=== PATIENT | male | born 1930 | race Caucasian/White ===

== ENCOUNTER 2016-10-08 10:09 | Emergency (ER) | payer OTHER ==
[~2016-10-08 10:09] MED LIST: ASAB PO; FLORASTOR250 MG PO; GLUCCHONDR PO; MSCONT15 PO; NEUR100 PO; NEUR300 PO; PRILO PO; TOPXL25 PO; ULTRACET PO; VIAGRA100 MG PO; ZANTAC 150 PO; ZESTRIL20 MG PO; ZOL50 PO
[2016-10-08] MEDS ORDERED: HALF81 PO (11:42)
[2016-10-08] MEDS ORDERED: PRILO PO (11:43)
[2016-10-08] MEDS ORDERED: NEUR300 PO (11:43)
[2016-10-08] MEDS ORDERED: TOPXL25 PO (11:43)
[2016-10-08] MEDS ORDERED: OTC PROBIOTIC PO (11:45)
[2016-10-08] MEDS ORDERED: ADVIL PO (11:46)
[2016-10-08] MEDS ORDERED: MULTIVIT/MIN PO (11:46)
[2016-10-08] MEDS ORDERED: CALC PO (11:47)
[2016-10-08] MEDS ORDERED: BALANCED B PO (11:47)
[2016-10-08] MEDS ORDERED: OMEGA PO (11:47)
[2016-10-08] MEDS ORDERED: [UNRECOGNIZED DRUG - OTHER] PO (11:47)
[2016-10-08] MEDS ORDERED: MAG PO (11:47)
[2016-10-08] MEDS ORDERED: OTC VITAMIN D PO (11:48)
[2016-10-08] MEDS ORDERED: MEDROLPAK4 PO (11:48)
[2016-10-08] MEDS ORDERED: ZYRTEC ALLGY10 MG PO (11:49)
[2016-10-08] MEDS ORDERED: [UNRECOGNIZED DRUG - REMARK] IM (11:50)
[2016-10-08] MEDS ORDERED: OXYCONTIN15 MG PO (11:51)
[2016-10-08 12:05] LABS: BASOPHILS 0.1 %; BASOPHILS ABSOLUTE 0.01 10/3/uL (0.0-0.16); EOSINOPHILS 0 %; HEMATOCRIT 44.8 % (40.0-51.0); HEMOGLOBIN 15.1 g/dL (13.6-17.8); IMMATURE GRANULOCYTES 0.2 %; IMMATURE GRANULOCYTES ABSOLUTE 0.02 10/3/uL (0.0-0.11); LYMPHOCYTES 7.8 %; LYMPHOCYTES ABSOLUTE 0.97 10/3/uL (0.67-4.30); MEAN CORPUS HGB CONC 33.7 g/dL (32.0-36.0); MEAN CORPUSCULAR HEMOGLOB 34.3 pg (26.0-34.0); MEAN PLATELET VOLUME 10.4 fL (9.2-13.0); MONOCYTES 6.8 %; MONOCYTES ABSOLUTE 0.84 10/3/uL (0.21-1.20); NEUTROPHILS 85.1 %; NEUTROPHILS ABSOLUTE 10.54 10/3/uL (2.02-8.40); PLATELET COUNT 193 10/3/uL (150-400); RBC DISTRIBUTION WIDTH 12.9 % (12.0-16.0)
[2016-10-08 12:06] LABS: ER CBC TAT 0 Hrs 03 Mins; MANUAL DIFF NO %; MEAN CORPUSCULAR VOLUME 101.8 fL (80-100); WHITE BLOOD CELLS 12.4 10/3/uL (4.5-10.5)
[2016-10-08 12:14] LABS: PARTIAL THROMBO TIME 29.6 SEC (22.5-37.2); PROTIME (NOT ORD) 13.4 SEC (12.0-14.5)
[2016-10-08 12:22] LABS: A/G RATIO 1.1 (0.7-1.9); ALBUMIN 3.4 G/DL (3.5-5.0); ALKALINE PHOSPHATASE 66 U/L (45-117); BUN (BLOOD UREA NITROGEN) 34 MG/DL (6-23); CALCIUM, SERUM 8.7 MG/DL (8.5-10.4); CHLORIDE, SERUM 107 MMOL/L (96-112); CO2 (CARBON DIOXIDE) 27 MMOL/L (24-34); CREATININE 1.62 MG/DL (0.70-1.30); GFR AFRICAN AMERICAN 44 ML/MIN (>=60); GFR NON AFRICAN AMERICAN 38 ML/MIN (>=60); GLOBULIN 3.2 G/DL (2.5-4.1); GLUCOSE, SERUM 107 MG/DL (60-99); POTASSIUM, SERUM 5.4 MMOL/L (3.5-5.3); SGOT(AST) 18 U/L (5-40); SGPT(ALT) 21 U/L (5-65); SODIUM, SERUM 141 MMOL/L (135-148); TOTAL BILIRUBIN 0.6 MG/DL (0-1.2); TOTAL PROTEIN 6.6 G/DL (6.0-8.5)
== END 2016-10-08 15:45 | disposition home or self-care (01) ==
LOC: ER 10:09
PROVIDERS: Nurse Practitioner
DX: M54.5 Low back pain (principal); I10 Essential (primary) hypertension; Z88.8 Allergy status to other drugs, medicaments and biological substances; Z79.82 Long term (current) use of aspirin; Z79.899 Other long term (current) drug therapy
CPT/HCPCS: 72148; 80053; 85025; 85610; 85730; 96374; 99284; J2405

== ENCOUNTER 2016-11-18 05:18 | Day surgery (SDC) | payer OTHER ==
[~2016-11-18 05:18] MED LIST changes: +ADVIL PO; +BALANCED B PO; +CALC PO; +HALF81 PO; +MAG PO; +MEDROLPAK4 PO; +MULTIVIT/MIN PO; +OMEGA PO; +OTC PROBIOTIC PO; +OTC VITAMIN D PO; +OXYCONTIN15 MG PO; +ZYRTEC ALLGY10 MG PO; +[UNRECOGNIZED DRUG - OTHER] PO; +[UNRECOGNIZED DRUG - REMARK] IM
== END 2016-11-18 07:32 | disposition home or self-care (01) ==
LOC: SDC 05:18
PROVIDERS: Orthopaedic Surgery
PROC: B01BZZZ Fluoroscopy of Spinal Cord (ICD-10-PCS; 2016-11-18)
PROC: 3E0R3BZ Introduction of Anesthetic Agent into Spinal Canal, Percutaneous Approach (ICD-10-PCS; principal; 2016-11-18 07:30)
DX: M54.16 Radiculopathy, lumbar region (principal); I10 Essential (primary) hypertension; Z96.659 Presence of unspecified artificial knee joint; Z90.89 Acquired absence of other organs; Z90.49 Acquired absence of other specified parts of digestive tract; M19.90 Unspecified osteoarthritis, unspecified site; Z98.41 Cataract extraction status, right eye; Z98.42 Cataract extraction status, left eye; Z98.890 Other specified postprocedural states
CPT/HCPCS: J1040; J2250; J3010; Q9967

== ENCOUNTER 2016-12-22 07:14 | Day surgery (SDC) | payer OTHER | END 2016-12-22 17:29 | disposition home or self-care (01) | LOC: SDC 07:14 | PROVIDERS: Orthopaedic Surgery | PROC: B01BZZZ Fluoroscopy of Spinal Cord (ICD-10-PCS; 2016-12-22) | PROC: 3E0R3BZ Introduction of Anesthetic Agent into Spinal Canal, Percutaneous Approach (ICD-10-PCS; principal; 2016-12-22 08:15) | DX: M54.16 Radiculopathy, lumbar region (principal); M19.90 Unspecified osteoarthritis, unspecified site; K21.9 Gastro-esophageal reflux disease without esophagitis; I10 Essential (primary) hypertension; Z90.49 Acquired absence of other specified parts of digestive tract; Z98.41 Cataract extraction status, right eye; Z98.42 Cataract extraction status, left eye; Z96.1 Presence of intraocular lens; Z98.890 Other specified postprocedural states | CPT/HCPCS: J1040; J2250; J3010; Q9967 ==